=== PATIENT | female | born 1935 | race Caucasian/White ===

== ENCOUNTER 2016-10-14 12:15 | Emergency (ER) | payer OTHER ==
[2016-10-14 12:40] VITALS: BP 135/56; PULSE 73; TEMP 97; BMI 44.4
--- NOTE | 2016-10-14 13:19 | PDOC ---
History of Present Illness <Costa Herrera - Last Filed: 10/14/16 13:11> - General History Source: Patient Exam Limitations: No Limitations - History of Present Illness Initial Comments: 10/14/16 13:28 The patient is an 80 year old female with a significant past medical history of hypertension, [facility] with rash to her arms, and under her breasts. She admits that she has noticed this rash for a couple months, and believes it is due to stress. She describes the rash as burning, and slowly worsening over the past couple months. She states that showering or scrubbing her skin exacerbated the rash, and applying cream alleviates the symptoms. She admits to having the shingles about 25 years ago. The patient denies itching or swelling to the rash. Patient denies nausea, vomiting, and diarrhea. Patient denies fever, chills, and cough. Patient denies palpitations, chest pain, shortness of breath, and diaphoresis. <Fátima Berumen - Last Filed: 10/14/16 13:29> - General Chief Complaint: Rash Stated Complaint: RASH Time Seen by Provider: 10/14/16 12:18 Past History - Past Medical History Anemia: No Asthma: No Cancer: No Cardiac Disorders: No CVA: No COPD: No CHF: No Dementia: No Diabetes: No GI Disorders: No Disorders: No HTN: Yes Hypercholesterolemia: ("not sure") Liver Disease: No Seizures: No Thyroid Disease: No - Immunization History Immunization Up to Date: Yes - Psycho/Social/Smoking Cessation Hx Anxiety: No Suicidal Ideation: No Smoking Status: No Smoking History: Never smoked Years of Tobacco Use: 0 Have you smoked in the past 12 months: No Number of Cigarettes Smoked Daily: 2 If you are a former smoker, when did you quit?: 1977 Information on smoking cessation initiated: No Hx Alcohol Use: No Drug/Substance Use Hx: No Substance Use Type: None Hx Substance Use Treatment: No <Costa Herrera - Last Filed: 10/14/16 13:11> <Fátima Berumen - Last Filed: 10/14/16 13:29> - Past Medical History Allergies/Adverse Reactions: Allergies Allergy/AdvReac Type Severity Reaction Status Date / Time grapefruit [Grapefruit] Allergy Verified 10/14/16 12:40 orange juice [[place] Juice] Allergy Verified 10/14/16 12:40 Penicillins Allergy Verified 10/14/16 12:40 tomato [Tomato] Allergy Verified 10/14/16 12:40 Home Medications: Ambulatory Orders Diphenhydramine HCl [Zzzquil] 50 mg PO TID PRN #0 ml 07/20/13 Multivitamins [Multivit ([facility])] 1 tab PO DAILY #0 tab 07/20/13 Nebivolol HCl [Bystolic] 10 mg PO DAILY #0 tablet 07/20/13 Simvastatin [Zocor -] 20 mg PO DAILY #0 tablet 07/20/13 Sulfamethoxazole/Trimethoprim [Bactrim Ds -] 1 tab PO BID #14 tablet 12/10/15 Clotrimazole 15 gm TP BID #1 tube 10/14/16 Review of Systems - Review of Systems Able to Perform ROS?: Yes Comments:: 10/14/16 13:28 CONSTITUTIONAL: No reported: Fever, Chills, Diaphoresis, Generalized Weakness, Malaise, Loss of Appetite GASTROINTESTINAL: No reported: Abdominal pain, , Nausea, Vomiting, MUSCULOSKELETAL: No reported: Myalgia, Arthralgia, SKIN: Reported: + rash to her arms and under her breasts No reported: Itching, Pallor HEMATOLOGIC/IMMUNOLOGIC: No reported: Easy Bleeding, Easy Bruising, Lymphadenopathy, Frequent infections <Fátima Berumen - Last Filed: 10/14/16 13:29> *Physical Exam - Vital Signs Last Vital Signs Temp Pulse Resp BP Pulse Ox 97.0 F L 73 18 135/56 98 10/14/16 12:15 10/14/16 12:15 10/14/16 12:15 10/14/16 12:15 10/14/16 12:15 <Costa Herrera - Last Filed: 10/14/16 13:11> - Vital Signs Last Vital Signs Temp Pulse Resp BP Pulse Ox 97.0 F L 73 18 135/56 98 10/14/16 12:15 10/14/16 12:15 10/14/16 12:15 10/14/16 12:15 10/14/16 12:15 - Physical Exam Comments: 10/14/16 13:28 GENERAL: The patient is awake, alert, and fully oriented, Nontoxic - in no acute distress. NECK: Normal range of motion, supple ABDOMEN: Soft, nontender EXTREMITIES: Normal range of motion, no edema. No clubbing or cyanosis. No cords, erythema, or tenderness. NEUROLOGICAL: No facial assymetry, Normal speech, moving all 4 extreities spontaneously PSYCH: Normal mood, normal affect. SKIN: well circumcribed nontender, not warm, erythemadous lesion under folds of breast and arm pits <Fátima Berumen - Last Filed: 10/14/16 13:29> Medical Decision Making - Medical Decision Making 10/14/16 13:11 rash c/w aguila intertrigo recommend keeping area dry will start antifungal cream will hve pt fu with pmd return precuautions were discussed I discussed the physical exam findings, ancillary test results and final diagnoses with the patient. I answered all of the patient's questions. The patient was satisfied with the care received and felt comfortable with the discharge plan and treatment plan. The patient will call their primary care physician within 24 hours to arrange follow-up and will return to the Emergency Department with any new, persistent or worsening symptoms. <Costa Herrera - Last Filed: 10/14/16 13:11> *DC/Admit/Observation/Transfer - Discharge Dispostion Admit: No <Costa Herrera - Last Filed: 10/14/16 13:11> - Attestations Scribe Attestion: 10/14/16 13:29 Documentation prepared by Fátima Berumen, acting as medical instrument cable fabricator for Csota Herrera MD. <Fátima Berumen - Last Filed: 10/14/16 13:29> Diagnosis at time of Disposition: Candidal intertrigo - Discharge Dispostion Disposition: HOME Condition at time of disposition: Improved - Prescriptions Prescriptions: Clotrimazole 15 gm TP BID #1 tube - Referrals Referrals: Delvin Mcfarland MD [Primary Care Provider] - - Patient Instructions Printed Discharge Instructions: Yeast Infection-Skin Additional Instructions: Keep your skin clean/dry espcially after showering Apply the antifungal cream to the affected skin twice daily. Return to the emergency department immediately with ANY new, persistent or worsening symptoms. You MUST call and follow up with your doctor in 5 days for further evaluation of your symptoms. Results were discussed with you. Please make sure your doctor reviews the results of your emergency evaluation.
== END 2016-10-14 16:13 | disposition home or self-care (01) ==
LOC: JER 12:15
DX: B37.2 Candidiasis of skin and nail (principal); L30.4 Erythema intertrigo; I10 Essential (primary) hypertension
CPT/HCPCS: 99281-25